=== PATIENT | male | born 1970 | race Caucasian/White ===

== ENCOUNTER 2021-11-20 14:53 | Inpatient (IN) ==
[2021-11-20] MEDS ORDERED: 0.9 % Sodium Chloride 1,000 ML ONE ×3 (14:58→23:12)
[2021-11-20] MEDS ORDERED: *HR* Heparin 10,000 UNIT/10 ML VIAL ONE (14:59)
[2021-11-20] MEDS ORDERED: Heparin 1,000 UNITS/500 mL 500 ML ONE (14:59)
[2021-11-20] MEDS ORDERED: Nitroglycerin 1,000 MCG/5 ML VIAL IV ONE ×2 (14:59→16:48)
[2021-11-20] MEDS ORDERED: ISOVUE-370 200 ML INFUS..BTL ONE ×3 (14:59→17:00)
[2021-11-20] MEDS ORDERED: *HR* Midazolam HCl 2 MG/2 ML VIAL ONE ×2 (15:36→16:33)
[2021-11-20] MEDS ORDERED: *HR* FentaNYL (PF) 100 MCG/2 ML VIAL ONE (15:36)
[2021-11-20] MEDS ORDERED: Tirofiban 12.5 MG/250ML 12.5 MG/250 ML BAG ONE (16:37)
[2021-11-20] MEDS ORDERED: *HR* Bivalirudin 250 MG VIAL IVC ONE (16:51)
[2021-11-20] MEDS ORDERED: Nitroglycerin 0.4 MG TAB.SUBL SL PRN (17:36)
[2021-11-20] MEDS ORDERED: Perflutren Lipid Microsphere 1.3 ML in 0.9 % Sodium Chloride 8.7 ML IVP PRN (17:36)
[2021-11-20] MEDS ORDERED: Dextrose Gel 15 GM/37.5 ML TUBE PO PRN ×2 (17:49)
[2021-11-20] MEDS ORDERED: *HR* Dextrose 50 % in Water (Syg) 50 ML SYRINGE IVP PRN (17:49)
[2021-11-20] MEDS ORDERED: D5% in Water 1,000 ML IVC PRN (17:49)
[2021-11-20] MEDS: Tirofiban 12.5 MG/250ML 12.5 MG/250 ML BAG IVC SCH (19:00)
[2021-11-20] MEDS: *HR* Ticagrelor 90 MG TABLET PO SCH (20:30)
[2021-11-20] MEDS ORDERED: Furosemide 40 MG/4 ML VIAL IVP ONE (20:54)
[2021-11-20 21:24] LABS: Alanine Aminotransferase 74 Units/L (7-52); Albumin 3.3 g/dL (3.5-5.7); Albumin/Globulin Ratio 1.1 (1.1-2.2); Alkaline Phosphatase 66 Units/L (34-104); Aspartate Amino Transferase 369 Units/L (13-39); Bilirubin,Direct 0.3 mg/dL (0.0-0.2); Bilirubin,Indirect 0.5 mg/dL (0.0-1.0); Bilirubin,Total 0.8 mg/dL (0.3-1.0); Globulin 3.1 g/dL (2.4-3.5); Lactate Dehydrogenase 922 Units/L (140-271); Total Protein 6.4 g/dL (6.4-8.9); Troponin I > 73.00 ng/mL (< 0.04)
[2021-11-20 21:34] LABS: Ferritin 955 ng/mL (20-250)
[2021-11-20] MEDS: amLODIPine 5 MG TABLET PO SCH (21:36)
[2021-11-21] MEDS: Tirofiban 12.5 MG/250ML 12.5 MG/250 ML BAG IVC SCH (01:41)
[2021-11-21] MEDS ORDERED: Morphine Sulfate 2 MG/ML SYRINGE IVP ONE (02:40)
[2021-11-21] MEDS ORDERED: Dextrose Gel 15 GM/37.5 ML TUBE PO PRN ×4 (03:57→08:18)
[2021-11-21] MEDS ORDERED: D5% in Water 1,000 ML IVC PRN ×2 (03:57→08:18)
[2021-11-21] MEDS ORDERED: *HR* Dextrose 50 % in Water (Syg) 50 ML SYRINGE IVP PRN ×2 (03:57→08:18)
[2021-11-21 05:44] LABS: Basophils % 0.4 %; Eosinophils % 0.1 %; Hematocrit 42.7 % (37.5-50.1); Hemoglobin 14.5 g/dL (12.9-16.9); Immature Granulocytes % 1.6 % (0-4); Lymphocytes # 1.2 K/mcL (0.6-4.6); Lymphocytes % 11.9 %; Mean Corpuscular Hemoglobin 29.4 pg (28.0-33.3); Mean Corpuscular Volume 86.6 fL (83.0-100.0); Mean Platelet Volume 9.4 fL (9.4-12.4); Monocytes # 0.7 K/mcL (0.0-1.3); Neutrophils # 8.2 K/mcL (1.6-8.9); Platelet Count 389 K/mcL (140-400); Red Blood Count 4.93 M/mcL (4.19-5.50); Red Cell Distribution Width 12.8 % (11.5-14.5); White Blood Count 10.4 K/mcL (4.3-11.1)
[2021-11-21] MEDS ORDERED: Insulin LISPRO 300 UNITS/3 ML VIAL SUBQ SCH (06:00)
[2021-11-21 06:01] LABS: Albumin 3.2 g/dL (3.5-5.7); Bilirubin,Direct 0.3 mg/dL (0.0-0.2); Bilirubin,Indirect 0.6 mg/dL (0.0-1.0); Bilirubin,Total 0.9 mg/dL (0.3-1.0); Globulin 3.3 g/dL (2.4-3.5); Total Protein 6.5 g/dL (6.4-8.9)
[2021-11-21 06:02] LABS: BUN/Creatinine Ratio 18 (6-26); Blood Urea Nitrogen 14 mg/dL (6-20); Carbon Dioxide 27 mEq/L (23-29); Chloride 99 mEq/L (98-107); Chol/HDL Ratio 4.4 (0-4.9); Cholesterol 155 mg/dL (< 200); Glucose 374 mg/dL (70-105); HDL Cholesterol 35 mg/dL (40-59); LDL Cholesterol,Calculated 97 mg/dL (< 100); Osmolality,Calculated 290 (280-300); Potassium 3.5 mEq/L (3.5-5.1); Sodium 132 mEq/L (136-145); Triglycerides 115 mg/dL (< 150); eGFR For African Americans > 60 (> 60); eGFR For Non-African Americans > 60 (> 60)
[2021-11-21 06:15] LABS: Thyroid Stimulating Hormone 2.182 mcIU/mL (0.340-5.600)
[2021-11-21] MEDS ORDERED: Morphine Sulfate 2 MG/ML SYRINGE IVP PRN (06:57)
[2021-11-21 07:04] LABS: Troponin I > 73.00 ng/mL (< 0.04)
[2021-11-21] MEDS ORDERED: carvediloL 25 MG TABLET PO SCH (08:00)
[2021-11-21] MEDS: Furosemide 40 MG/4 ML VIAL IVP SCH (08:22)
[2021-11-21] MEDS: Insulin LISPRO 300 UNITS/3 ML VIAL SUBQ SCH ×3 (08:22→16:32)
[2021-11-21] MEDS: Aspirin 81 MG TAB.CHEW PO SCH (08:23)
[2021-11-21] MEDS: amLODIPine 5 MG TABLET PO SCH (08:23)
[2021-11-21] MEDS: *HR* Ticagrelor 90 MG TABLET PO SCH ×2 (08:23→20:44)
[2021-11-21] MEDS: Dexamethasone Sodium Phos/PF 10 MG/ML VIAL IVP SCH (08:23)
[2021-11-21] MEDS ORDERED: Insulin DETEMIR 100 UNIT/ML X5UNITS SUBQ SCH ×2 (08:30→21:00)
[2021-11-21] MEDS ORDERED: Dexamethasone Sodium Phos/PF 10 MG/ML VIAL IVP SCH (09:00)
[2021-11-21 10:12] LABS: Estimated Average Glucose 266 mg/dl; Hemoglobin A1C 10.9 %
[2021-11-21] MEDS ORDERED: Metoprolol XL (24 HR) Succ 50 MG TAB.ER.24H PO SCH (10:15)
[2021-11-21] MEDS: *HR* Heparin 5,000 UNIT/ML VIAL SQ SCH ×2 (16:31→22:49)
[2021-11-21] MEDS: Metoprolol XL (24 HR) Succ 50 MG TAB.ER.24H PO SCH ×2 (16:32→22:49)
[2021-11-22 04:02] LABS: Hematocrit 41.9 % (37.5-50.1); Hemoglobin 14.2 g/dL (12.9-16.9); Mean Corpuscular HGB Conc 33.9 g/dL (31.6-35.5); Mean Corpuscular Volume 85.7 fL (83.0-100.0); Mean Platelet Volume 9.7 fL (9.4-12.4); Platelet Count 414 K/mcL (140-400); Red Blood Count 4.89 M/mcL (4.19-5.50); Red Cell Distribution Width 12.7 % (11.5-14.5); White Blood Count 13.1 K/mcL (4.3-11.1)
[2021-11-22 04:15] LABS: Alanine Aminotransferase 57 Units/L (7-52); Albumin 3.1 g/dL (3.5-5.7); Albumin/Globulin Ratio 0.9 (1.1-2.2); Alkaline Phosphatase 55 Units/L (34-104); Aspartate Amino Transferase 105 Units/L (13-39); BUN/Creatinine Ratio 37 (6-26); Bilirubin,Total 0.9 mg/dL (0.3-1.0); Blood Urea Nitrogen 24 mg/dL (6-20); C-Reactive Protein 94 mg/L (Less than 10); Calcium 8.1 mg/dL (8.6-10.3); Carbon Dioxide 27 mEq/L (23-29); Chloride 100 mEq/L (98-107); Globulin 3.3 g/dL (2.4-3.5); Glucose 269 mg/dL (70-105); Osmolality,Calculated 292 (280-300); Sodium 134 mEq/L (136-145); Total Protein 6.4 g/dL (6.4-8.9); eGFR For African Americans > 60 (> 60); eGFR For Non-African Americans > 60 (> 60)
[2021-11-22] MEDS: *HR* Heparin 5,000 UNIT/ML VIAL SQ SCH ×2 (05:16→21:25)
[2021-11-22] MEDS: Furosemide 40 MG/4 ML VIAL IVP SCH (08:12)
[2021-11-22] MEDS: Dexamethasone Sodium Phos/PF 10 MG/ML VIAL IVP SCH (08:12)
[2021-11-22] MEDS: amLODIPine 5 MG TABLET PO SCH (08:13)
[2021-11-22] MEDS: Aspirin 81 MG TAB.CHEW PO SCH (08:13)
[2021-11-22] MEDS: Insulin LISPRO 300 UNITS/3 ML VIAL SUBQ SCH ×2 (08:13→12:01)
[2021-11-22] MEDS: *HR* Ticagrelor 90 MG TABLET PO SCH ×2 (08:13→19:58)
[2021-11-22] MEDS: Metoprolol XL (24 HR) Succ 50 MG TAB.ER.24H PO SCH ×2 (08:13→16:47)
[2021-11-22] MEDS ORDERED: Insulin DETEMIR 100 UNIT/ML X5UNITS SUBQ SCH ×2 (09:00→21:00)
[2021-11-22] MEDS ORDERED: Dextrose Gel 15 GM/37.5 ML TUBE PO PRN ×2 (14:18)
[2021-11-22] MEDS ORDERED: *HR* Dextrose 50 % in Water (Syg) 50 ML SYRINGE IVP PRN ×2 (14:18→18:24)
[2021-11-22] MEDS ORDERED: Morphine Sulfate 2 MG/ML SYRINGE IVP PRN (14:18)
[2021-11-22] MEDS ORDERED: D5% in Water 1,000 ML IVC PRN (14:18)
[2021-11-22] MEDS ORDERED: Nitroglycerin 0.4 MG TAB.SUBL SL PRN (14:18)
[2021-11-22] MEDS ORDERED: Insulin LISPRO 300 UNITS/3 ML VIAL SUBQ SCH (16:30)
[2021-11-23] MEDS: Metoprolol XL (24 HR) Succ 50 MG TAB.ER.24H PO SCH ×3 (00:28→20:19)
[2021-11-23] MEDS ORDERED: D5% in Water 1,000 ML IVC PRN (03:51)
[2021-11-23] MEDS ORDERED: Dextrose Gel 15 GM/37.5 ML TUBE PO PRN ×2 (03:51)
[2021-11-23 04:20] LABS: Hematocrit 40.5 % (37.5-50.1); Hemoglobin 14.2 g/dL (12.9-16.9); Mean Corpuscular HGB Conc 35.1 g/dL (31.6-35.5); Mean Corpuscular Hemoglobin 29.7 pg (28.0-33.3); Mean Corpuscular Volume 84.7 fL (83.0-100.0); Mean Platelet Volume 9.5 fL (9.4-12.4); Platelet Count 488 K/mcL (140-400); Red Blood Count 4.78 M/mcL (4.19-5.50); Red Cell Distribution Width 12.7 % (11.5-14.5); White Blood Count 16.1 K/mcL (4.3-11.1)
[2021-11-23 04:30] LABS: VBG HCO3 27 mEq/L (21-27); VBG PCO2 37 mmHg (41-51); VBG PH 7.47 pH Units (7.32-7.42); VBG PO2 55 mmHg (25-50)
[2021-11-23 04:46] LABS: Alanine Aminotransferase 46 Units/L (7-52); Alkaline Phosphatase 53 Units/L (34-104); Aspartate Amino Transferase 43 Units/L (13-39); BUN/Creatinine Ratio 46 (6-26); Bilirubin,Total 0.7 mg/dL (0.3-1.0); Blood Urea Nitrogen 28 mg/dL (6-20); C-Reactive Protein 28 mg/L (Less than 10); Calcium 8.3 mg/dL (8.6-10.3); Carbon Dioxide 27 mEq/L (23-29); Chloride 103 mEq/L (98-107); Globulin 3.1 g/dL (2.4-3.5); Glucose 108 mg/dL (70-105); Magnesium 2.1 mg/dL (1.6-2.6); Osmolality,Calculated 292 (280-300); Phosphorous 3.2 mg/dL (2.7-4.5); Potassium 3.2 mEq/L (3.5-5.1); Sodium 138 mEq/L (136-145); Total Protein 6.1 g/dL (6.4-8.9); eGFR For African Americans > 60 (> 60); eGFR For Non-African Americans > 60 (> 60)
[2021-11-23] MEDS: Insulin DETEMIR 100 UNIT/ML X5UNITS SUBQ SCH ×2 (05:07→20:18)
[2021-11-23] MEDS: *HR* Heparin 5,000 UNIT/ML VIAL SQ SCH ×3 (05:07→20:16)
[2021-11-23] MEDS: Furosemide 40 MG/4 ML VIAL IVP SCH (08:33)
[2021-11-23] MEDS: Dexamethasone Sodium Phos/PF 10 MG/ML VIAL IVP SCH (08:34)
[2021-11-23] MEDS: amLODIPine 5 MG TABLET PO SCH (08:35)
[2021-11-23] MEDS: *HR* Ticagrelor 90 MG TABLET PO SCH ×2 (08:36→20:20)
[2021-11-23] MEDS: Aspirin 81 MG TAB.CHEW PO SCH (08:36)
[2021-11-23] MEDS ORDERED: Insulin DETEMIR 100 UNIT/ML X5UNITS SUBQ SCH (09:00)
[2021-11-23] MEDS: Isosorbide MONOnitrate (24 HR) 30 MG TAB.ER.24H PO SCH (11:56)
[2021-11-23] MEDS: Insulin LISPRO 300 UNITS/3 ML VIAL SUBQ SCH ×3 (11:57→21:59)
[2021-11-23] MEDS ORDERED: Insulin LISPRO 300 UNITS/3 ML VIAL SUBQ SCH (21:15)
[2021-11-24 02:00] LABS: Basophils # 0.1 K/mcL (0.0-0.2); Basophils % 0.4 %; Eosinophils # 0.1 K/mcL (0.0-0.6); Eosinophils % 0.6 %; Hematocrit 41.3 % (37.5-50.1); Hemoglobin 13.9 g/dL (12.9-16.9); Immature Granulocytes % 2.8 % (0-4); Lymphocytes # 1.4 K/mcL (0.6-4.6); Lymphocytes % 9.8 %; Mean Corpuscular HGB Conc 33.7 g/dL (31.6-35.5); Mean Corpuscular Hemoglobin 28.8 pg (28.0-33.3); Mean Corpuscular Volume 85.5 fL (83.0-100.0); Mean Platelet Volume 9.5 fL (9.4-12.4); Monocytes # 1.1 K/mcL (0.0-1.3); Monocytes % 7.5 %; Neutrophils # 11.1 K/mcL (1.6-8.9); Platelet Count 473 K/mcL (140-400); Red Blood Count 4.83 M/mcL (4.19-5.50); Red Cell Distribution Width 12.7 % (11.5-14.5); Segmented Neutrophils % 78.9 %
[2021-11-24 02:23] LABS: Alanine Aminotransferase 40 Units/L (7-52); Albumin 2.9 g/dL (3.5-5.7); Alkaline Phosphatase 65 Units/L (34-104); Aspartate Amino Transferase 28 Units/L (13-39); BUN/Creatinine Ratio 43 (6-26); Bilirubin,Total 0.6 mg/dL (0.3-1.0); Blood Urea Nitrogen 32 mg/dL (6-20); C-Reactive Protein 15 mg/L (Less than 10); Calcium 8.1 mg/dL (8.6-10.3); Carbon Dioxide 23 mEq/L (23-29); Chloride 104 mEq/L (98-107); Glucose 327 mg/dL (70-105); Osmolality,Calculated 296 (280-300); Potassium 3.5 mEq/L (3.5-5.1); Sodium 133 mEq/L (136-145); Total Protein 5.9 g/dL (6.4-8.9); eGFR For African Americans > 60 (> 60); eGFR For Non-African Americans > 60 (> 60)
[2021-11-24] MEDS ORDERED: Benzonatate 100 MG CAPSULE PO PRN (05:00)
[2021-11-24] MEDS: *HR* Heparin 5,000 UNIT/ML VIAL SQ SCH (05:17)
[2021-11-24 07:20] VITALS: BP 137/82; PULSE 82; TEMP 97.6
[2021-11-24] MEDS: amLODIPine 5 MG TABLET PO SCH (07:58)
[2021-11-24] MEDS: Metoprolol XL (24 HR) Succ 50 MG TAB.ER.24H PO SCH (07:58)
[2021-11-24] MEDS: Isosorbide MONOnitrate (24 HR) 30 MG TAB.ER.24H PO SCH (07:59)
[2021-11-24] MEDS: *HR* Ticagrelor 90 MG TABLET PO SCH (08:00)
[2021-11-24] MEDS: Dexamethasone Sodium Phos/PF 10 MG/ML VIAL IVP SCH (08:00)
[2021-11-24] MEDS: Aspirin 81 MG TAB.CHEW PO SCH (08:00)
[2021-11-24] MEDS: Insulin LISPRO 300 UNITS/3 ML VIAL SUBQ SCH (08:01)
[2021-11-24] MEDS: Furosemide 40 MG/4 ML VIAL IVP SCH (08:01)
[2021-11-24 10:06] VITALS: O2SAT 94
[2021-11-24] MEDS: Insulin DETEMIR 100 UNIT/ML X5UNITS SUBQ SCH (10:20)
[2021-11-24] MEDS ORDERED: carvediloL 25 MG TABLET PO SCH (17:00)
== END 2021-11-24 12:50 | disposition home or self-care (01) | DRG 951 ==
LOC: 2NNU 17:26 → ICNU 11-21 00:39 → 2NNU 11-22 14:14
PROVIDERS: ADMIT Internal Medicine; ATTEND Internal Medicine